=== PATIENT | male | born 1950 | race Caucasian/White ===

== ENCOUNTER 2016-10-15 11:08 | Outpatient (CLI) | payer OTHER | END 2016-10-15 18:16 | disposition home or self-care (01) | LOC: SRD 11:08 | PROVIDERS: ATTEND Internal Medicine | DX: I51.7 Cardiomegaly (principal); R05 Cough; M47.899 Other spondylosis, site unspecified | CPT/HCPCS: 71020-TC ==

== ENCOUNTER 2018-10-20 15:57 | Outpatient (CLI) | payer OTHER | END 2018-10-20 20:51 | disposition home or self-care (01) | LOC: SRD 15:57 | PROVIDERS: ATTEND Internal Medicine | DX: M19.041 Primary osteoarthritis, right hand (principal) ==

== ENCOUNTER 2019-04-01 08:12 | Outpatient (CLI) | payer OTHER | END 2019-04-01 20:23 | disposition home or self-care (01) | LOC: SNM 08:12 | PROVIDERS: ATTEND Urology | DX: C61 Malignant neoplasm of prostate (principal) | CPT/HCPCS: 78306; A9503 ==

== ENCOUNTER 2019-05-04 11:56 | Outpatient (CLI) | payer OTHER | END 2019-05-04 21:03 | disposition home or self-care (01) | LOC: SRD 11:56 | PROVIDERS: ATTEND Internal Medicine | DX: R91.8 Other nonspecific abnormal finding of lung field (principal); Q79.1 Other congenital malformations of diaphragm; M47.819 Spondylosis without myelopathy or radiculopathy, site unspecified; Z90.79 Acquired absence of other genital organ(s) | CPT/HCPCS: 71046-TC ==